=== PATIENT | male | born 2000 | race Caucasian/White ===

== ENCOUNTER 2019-10-29 13:21 | Emergency (ER) | payer SELFPAY ==
--- NOTE | ~2019-10-29 | CT_ITS ---
EXAMINATION: CT brain wo con DATE: 10/29/2019 14:14 INDICATION: Dizziness. Headache. TECHNIQUE: Computed tomography (CT) of the head was performed without intravenous contrast. The mA wa s adjusted according to patient size. Iterative reconstruction technique was employed. The dose-lengt h product was 605.33 mGy-cm. COMPARISON: None FINDINGS: There is no intracranial hemorrhage, acute infarction, or abnormal intracranial mass lesion . The ventricles are normal in size. There is mild mucosal thickening in the ethmoid sinuses. The orb its are normal. The mastoid air cells are normal. IMPRESSION: 1. Normal brain. Reviewed, dictated and finalized at location A. IMPRESSION: 1. Normal brain.
--- NOTE | ~2019-10-29 | XR_ITS ---
EXAMINATION: XR chest 1V DATE: 10/29/2019 14:17 INDICATION: Dizziness. TECHNIQUE: A single frontal view of the chest was obtained. COMPARISON: None. FINDINGS: The chest demonstrates clear lungs without pneumonia, pleural effusion, or pneumothorax. Th e heart size is normal. IMPRESSION: 1. No acute cardiopulmonary disease. Reviewed, dictated and finalized at location A.
[2019-10-29 13:26] VITALS: BP 146/87; PULSE 85; RESP 16; TEMP 36.7; O2SAT 100
[2019-10-29 13:44] VITALS: BP 141/77; PULSE 86; RESP 23; TEMP 36.7; O2SAT 100
--- NOTE | 2019-10-29 13:52 | ED.DIZZY ---
HPI - Dizziness General Chief Complaint: Dizziness Stated Complaint: dizziness Time Seen by Provider: 10/29/19 13:49 Source: patient Mode of arrival: ambulatory Limitations: no limitations History of Present Illness HPI Narrative: The pt is a 19 y/o male who presents to the ED c/o dizziness onset four days ago. Pt states that it is intermittent, and worsens when he moves. It sometimes improves when he lies down. He describes it as a room-spinning. Pt reports intermittent HAIR, cough, and intermittent nausea, but denies rhinorrhea, sneezing, and sore throat. Pt denies any new stress or new medications. Pt denies any usage of cigarettes or alcohol. MD elicited complaint: dizziness Onset (ago): day(s) (4) Timing: intermittent Description: room spinning Exacerbating factors: movement/ambulation Relieving factors: lying down Associated symptoms: nausea (Intermittent) and other (Cough) Associated neuro symptoms: other (Headache (Intermittent)) Related Data Allergies Allergy/AdvReac Type Severity Reaction Status Date / Time No Known Allergies Allergy Verified 10/29/19 13:49 Review of Systems Review of Systems: All systems reviewed & are unremarkable except as noted in HPI and below ENT: Denies sore throat and Denies other (Rhinorrhea, sneezing) Respiratory: Respiratory: Reports cough Gastrointestinal: Gastrointestinal: Reports nausea (Intermittent) Neurologic: Reports dizziness ( Room-spinning, Intermittent) and Reports headache(s) (Intermittent) PMFSH Past Medical History Medical History (Updated 10/29/19 @ 15:13 by Emiliano Khan MD) No significant past medical history Surgical History Surgical History (Updated 10/29/19 @ 14:10 by Aolnso Rodriguez) No significant past surgical history Social History Social History (Updated 10/29/19 @ 14:10 by Alonso Rodriguez) Smoking status: Never smoker Gender identity (if verbalized by the patient): Male Exam Narrative: Exam Narrative: General appearance: Well-developed, well-nourished Skin: Normal color Head: Normocephalic, nontraumatic Eyes: Clear conjunctiva ENT: Oropharynx normal, ears normal, nose normal Neck: Supple, nontender Chest and respiratory: Airway patent, no respiratory distress, no accessory muscle use Heart: Regular rate/rhythm Abdomen: Soft, nontender, no organomegaly, quiet bowel sounds Vascular: Normal peripheral pulses, normal capillary refill. Musculoskeletal: Normal range of motion, nontender back Neurologic: Alert and oriented ?3, [employer] is normal as tested, no gross motor deficit Course Course Emergency Course: Improving Vital Signs Vital signs: Vital Signs Temperature 36.7 C 10/29/19 13:26 Pulse Rate 85 10/29/19 13:26 Respiratory Rate 16 10/29/19 13:26 Blood Pressure 146/87 H 10/29/19 13:26 Pulse Oximetry 100 10/29/19 13:26 Temperature 36.7 C 10/29/19 13:44 Pulse Rate 88 10/29/19 14:00 Respiratory Rate 23 H 10/29/19 13:44 Blood Pressure 146/102 H 10/29/19 14:00 Pulse Oximetry 100 10/29/19 13:44 MDM - Dizziness MDM Narrative Medical decision making narrative: My concern is orthostatic hypotension, stress-induced, upper respiratory infection causing dizziness or intracranial pathology. Labs, CT head, UA ordered. Further plan to follow Differential Diagnosis Differential diagnosis: Likely orthostatic hypotension and other (Anxiety, intracranial pathology) Lab Data Result diagrams: 10/29/19 14:45 10/29/19 14:45 Labs: Lab Results 10/29/19 10/29/19 Range/Units 14:45 14:45 WBC 8.2 (4.5-10.0) K/mm3 RBC 5.62 (4.6-6.20) M/mm3 Hgb 16.4 (14.0-18.0) g/dL Hct 48.8 (42.0-5
[2019-10-29 14:00] VITALS: BP 132/65; BP 137/95; BP 146/102; PULSE 73; PULSE 85; PULSE 88
--- NOTE | 2019-10-29 14:03 | ECG_ITS ---
Measurements Intervals [place] Rate: 69 P: 22 [place]: 137 QRS: 55 QRSD: 83 T: 16 QT: 355 QTc: 381 Interpretive Statements SINUS RHYTHM BASELINE ARTIFACT- I, II, AVR NORMAL ECG Electronically Signed On 10-29-2019 16:07:59 CDT by Ramiro Lynn D.O.
[2019-10-29 14:50] LABS: Basophils Absolute Auto 0.1 K/mm3 (0.0-0.1); Eosinophils Absolute Auto 0.2 K/mm3 (0-0.3); Eosinophils Percent Auto 1.9 % (0-4.4); Hematocrit 48.8 % (42.0-52.0); Hemoglobin 16.4 g/dL (14.0-18.0); Immature Granulocyte Absolute 0.04 K/mm3 (0.00-0.031); Immature Granulocyte Percent A 0.5 % (0-0.5); Lymphocytes Absolute Auto 2.05 K/mm3 (0.9-3.2); Lymphocytes Percent Auto 24.9 % (18.3-44.2); Mean Corpuscular HGB Conc 33.6 g/dl (32-36); Mean Corpuscular Hemoglobin 29.2 pg (26-34); Mean Corpuscular Volume 86.8 fl (80-100); Mean Platelet Volume 11.3 fl (7.4-10.4); Monocytes Absolute Auto 0.7 K/mm3 (0.1-0.6); Monocytes Percent Auto 7.9 % (2.6-8.5); Neutrophils Absolute Auto 5.2 K/mm3 (1.3-6.7); Neutrophils Percent Auto 63.8 % (45.5-73.1); Platelet Count Result 239 k/mm3 (150-375); Red Blood Count 5.62 M/mm3 (4.6-6.20); Red Cell Distribution Width 12.8 % (11.5-14.5); White Blood Count 8.2 K/mm3 (4.5-10.0)
[2019-10-29 15:02] LABS: Alanine Aminotransferase 35 U/L (4-50); Albumin Level 4.5 g/dL (3.5-5.1); Alkaline Phosphatase 95 U/L (38-126); Aspartate Amino Transferase 31 U/L (17-59); Bilirubin,Total 0.7 mg/dL (0.2-1.3); Blood Urea Nitrogen 18 mg/dL (9-20); Calcium 9.6 mg/dL (8.4-10.2); Carbon Dioxide 28 mmol/L (22-30); Chloride 103 mmol/L (98-107); Estimated CRCL calculation 122 ml/min; Estimated Glomerular Filt Rate > 60; Glucose 93 mg/dL (75-110); Potassium 4.5 mmol/L (3.4-5.0); Sodium 141 mmol/L (137-145)
[2019-10-29 15:15] VITALS: BP 142/95; PULSE 87; RESP 18; TEMP 37.1; O2SAT 100
[2019-10-29 15:34] VITALS: BP 137/87; PULSE 71; RESP 18; TEMP 36.4; O2SAT 99
== END 2019-10-29 15:34 | disposition home or self-care (01) ==
PROVIDERS: Emergency Provider Emergency Medicine
DX: R42 Dizziness and giddiness (principal)
CPT/HCPCS: 36415; 70450; 71045; 80053; 85025; 93005; 99284

== ENCOUNTER 2019-12-14 18:43 | Emergency (ER) | payer SELFPAY ==
--- NOTE | ~2019-12-14 | XR_ITS ---
EXAMINATION: XR shoulder RT min 2V EXAM DATE: 12/14/2019 19:09 INDICATION: Initial encounter following injury, with pain of the right shoulder. Injury was 2 weeks ago with persistent pain. TECHNIQUE: The following right shoulder projections obtained: frontal projection with internal rotati on, frontal projection with external rotation, Grashey, and scapular Y view (4+ views). There is no prior study for comparison. FINDINGS: Slight contour distortions to the right sixth and seventh ribs posteriorly, possible subacu te or chronic rib fractures. No evidence of right shoulder rotator cuff calcific tendinosis. Unrem arkable right glenohumeral and acromioclavicular joints. There are no acute right shoulder fractures or dislocations identified. There is no subcutaneous gas. The soft tissue is unremarkable. There are no radiopaque foreign bodies. IMPRESSION: Possible subacute right sixth and seventh rib fractures posteriorly. Unremarkable shoulde r. Reviewed, dictated and finalized at location A. IMPRESSION: Possible subacute right sixth and seventh rib fractures posteriorly . Unremarkable shoulder.
[2019-12-14 18:48] VITALS: BP 152/101; PULSE 98; RESP 18; TEMP 37.1
--- NOTE | 2019-12-14 19:27 | ED.UPPEXIN ---
HPI - Extremity Injury (Upper) General Chief Complaint: Extremity Injury, Upper <Sammie Ramirez PA-C - Last Filed: 12/14/19 19:36> Stated Complaint: Shoulder injury <DENA Arellano Last Filed: 12/14/19 19:36> Time Seen by Provider: 12/14/19 19:07 <Sammie Ramirez PA-C - Last Filed: 12/14/19 19:36> Source: patient <DENA Arellano Last Filed: 12/14/19 19:36> Mode of arrival: ambulatory <DENA Arellano Last Filed: 12/14/19 19:36> Limitations: no limitations <DENA Arellano Last Filed: 12/14/19 19:36> History of Present Illness HPI narrative: Patient presents with chief complaint of right shoulder pain that began approximately 2 weeks ago while lifting at work. Patient states that he felt a sharp pain in his upper bicep and shoulder but he continued to work. Patient states he was lifting today and the pain returned and was greater. He denies direct trauma to the shoulder falls. He denies any prior fractures to the area. Patient states that he is unable to move the shoulder in abduction or external rotation without a tremendous amount of pain. Patient denies any other injuries or concerns. <Sammie Ramirez PA-C - Last Filed: 12/14/19 19:36> Related Data Allergies/Adverse Reactions: Allergies Allergy/AdvReac Type Severity Reaction Status Date / Time No Known Allergies Allergy Verified 10/29/19 13:49 <Sammie Ramirez PA-C - Last Filed: 12/14/19 19:36> Review of Systems Review of Systems: Narrative: CONSTITUTIONAL: Denies fever, chills, or sweats. EYES: Denies visual changes, redness, or discharge. ENT: Denies rhinorrhea, congestion, sore throat, or otalgia. CARDIOVASCULAR: Denies chest pain, palpitations, or edema. RESPIRATORY: Denies cough or dyspnea. GASTROINTESTINAL: Denies abdominal pain, nausea, vomiting, or diarrhea. GENITOURINARY: Denies dysuria or hematuria. SKIN: Denies rash or itching. MUSCULOSKELETAL: Right shoulder pain denies back pain or myalgia. NEUROLOGIC: Denies headache, numbness, dizziness, or weakness. PSYCHIATRIC: Denies anxiety or depression. <Sammie Ramirez PA-C - Last Filed: 12/14/19 19:36> PMFSH Past Medical History Medical History: Medical History (Updated 12/14/19 @ 19:34 by Sammie Ramirez PA-C) No significant past medical history <Sammie Ramirez PA-C - Last Filed: 12/14/19 19:36> Surgical History Surgical History: Surgical History (Updated 10/29/19 @ 14:10 by Alonso Rodriguez) No significant past surgical history <Sammie Ramirez PA-C - Last Filed: 12/14/19 19:36> Social History Social History: Social History (Updated 10/29/19 @ 14:10 by Alonso Rodriguez) Smoking status: Never smoker Gender identity (if verbalized by the patient): Male <Sammie Ramirez PA-C - Last Filed: 12/14/19 19:36> Exam Narrative: Exam Narrative: GENERAL: Well-appearing, well-nourished, and in no acute distress. HEAD: Normocephalic, atraumatic. EYES: PERRLA and EOMI. ENT: Nares clear, no rhinorrhea or epistaxis. Mucous membranes moist. Oropharynx without tonsillar hypertrophy exudate or other lesions. NECK: Supple. No adenopathy or masses. Range of motion intact without injury. CHEST: Clear to auscultation. No respiratory distress. No wheezes rales or rhonchi. No tachypnea or pain with breathing. HEART: Regular rate and rhythm. No murmur heard. Normal peripheral pulses. ABDOMEN: Soft, nontender, nondistended, normal active bowel sounds. EXTREMITIES: No outward edema or abrasions noted. Patient reports pain with any abduction over 45 degrees. Patient is able to internally rotate but is unable to externally rotate due to extreme pain. Patient also declines passive range of motion testing. 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 SKIN: Warm, dry, no rash. NEURO: No focal deficits. Alert and oriented x3. PSYCH: Normal mood and affect. <Sammie Ramirez PA-C -
[2019-12-14 19:31] VITALS: BP 140/81; PULSE 78; RESP 20; O2SAT 99
== END 2019-12-14 19:56 | disposition home or self-care (01) ==
PROVIDERS: Emergency Provider Emergency Medicine
DX: S43.401A Unspecified sprain of right shoulder joint, initial encounter (principal); R93.7 Abnormal findings on diagnostic imaging of other parts of musculoskeletal system; X50.9XXA Other and unspecified overexertion or strenuous movements or postures, initial encounter
CPT/HCPCS: 73030; 99283; A4565

== ENCOUNTER 2021-03-15 11:50 | Day surgery (SDC) | payer SELFPAY ==
[2021-03-15] VITALS (10 sets, daily range): BP systolic 108–159; BP diastolic 48–104; PULSE 79–110; RESP 18–34; TEMP 36.3–36.7; O2SAT 94–99; BMI 38.6
--- NOTE | ~2021-03-15 | CT_ITS ---
EXAMINATION: CT abdomen pelvis w con EXAM DATE: 03/15/2021 13:06 INDICATION: Right lower quadrant pain. TECHNIQUE: Spiral CT of the abdomen and pelvis was performed following intravenous injection of 100 m L Omnipaque 350. Axial, coronal and sagittal images of the abdomen and pelvis were reviewed. The do se-length product (DLP) for this examination was 1684.42 mGy-cm. The exposure was tailored according to patient size (auto mA exposure control), and iterative reconstruction (ASIR) was used as addition al dose reduction technique. There is no prior study for comparison. FINDINGS: There is hepatic steatosis without suspicious focal lesion identified. Spleen, adrenal glan ds, pancreas are unremarkable. Gallbladder is unremarkable. No biliary obstruction. Portal and spl enic veins are patent. Kidneys enhance symmetrically. There is no hydronephrosis. Small region of s carring in the superior pole of the left kidney. The prostate is unremarkable. The bladder is unrem arkable. There is no retroperitoneal or pelvic lymphadenopathy. The appendix is dilated with moderate amount of adjacent inflammation. No abscess or perforation. Acu te uncomplicated appendicitis. The stomach and small bowel are unremarkable. There is expected amou nt of colonic stool. No free intraperitoneal gas. The heart is normal in size. There are no zayra cardial or pleural effusions. The lung bases are unremarkable. There are no osteoblastic or osteoly tic lesions identified. IMPRESSION: Acute uncomplicated appendicitis. I discussed appendicitis with Rylan Jackson DO at 03/15/2021 13:10 CDT. Reviewed, dictated and finalized at location B.
[2021-03-15 12:15] LABS: Basophils Absolute Auto 0.1 K/mm3 (0.0-0.1); Basophils Percent Auto 0.6 % (0.2-1.2); Eosinophils Absolute Auto 0.2 K/mm3 (0-0.3); Eosinophils Percent Auto 2.1 % (0-4.4); Hematocrit 47.1 % (42.0-52.0); Immature Granulocyte Absolute 0.06 K/mm3 (0.00-0.031); Immature Granulocyte Percent A 0.5 % (0-0.5); Lymphocytes Absolute Auto 2.33 K/mm3 (0.9-3.2); Lymphocytes Percent Auto 21.3 % (18.3-44.2); Mean Corpuscular Hemoglobin 29.6 pg (26-34); Mean Corpuscular Volume 87.1 fl (80-100); Mean Platelet Volume 11.1 fl (7.4-10.4); Monocytes Percent Auto 8.7 % (2.6-8.5); Neutrophils Absolute Auto 7.3 K/mm3 (1.3-6.7); Neutrophils Percent Auto 66.8 % (45.5-73.1); Platelet Count Result 280 k/mm3 (150-375); Red Blood Count 5.41 M/mm3 (4.6-6.20); Red Cell Distribution Width 12.8 % (11.5-14.5); White Blood Count 10.9 K/mm3 (4.5-10.0)
[2021-03-15 12:26] LABS: Alanine Aminotransferase 53 U/L (4-50); Albumin Level 4.8 g/dL (3.5-5.1); Alkaline Phosphatase 82 U/L (38-126); Anion Gap 12 mmol/L (8-16); Aspartate Amino Transferase 35 U/L (17-59); Bilirubin,Total 0.9 mg/dL (0.2-1.3); Blood Urea Nitrogen 16 mg/dL (9-20); Calcium 10.4 mg/dL (8.4-10.2); Carbon Dioxide 25 mmol/L (22-30); Chloride 103 mmol/L (98-107); Estimated CRCL calculation 128 ml/min; Estimated Glomerular Filt Rate > 60; Glucose 112 mg/dL (65-110); Lipase 85 U/L (23-300); Potassium 4.3 mmol/L (3.4-5.0); Sodium 140 mmol/L (137-145)
--- NOTE | 2021-03-15 12:34 | ED.ABDPAIN ---
HPI - Abdominal Pain General Chief Complaint: Abdominal Pain Stated Complaint: RLQ Pain Time Seen by Provider: 03/15/21 12:29 Source: RN notes reviewed History of Present Illness HPI narrative: Patient presents emergency department from home for abdominal pain. Patient states symptoms began 3 days ago. Pain is located right lower quadrant does not radiate. Pain is described as sharp and stabbing. Associated with nausea and diarrhea. Patient states he took Tylenol for the pain at home with no relief he denies any fevers or chills chest pain shortness of breath or any other symptoms Related Data Home Medications Medication Instructions Recorded Confirmed diazepam 5 mg tablet 5 mg PO ONCE PRN tablet 01/18/20 Allergies Allergy/AdvReac Type Severity Reaction Status Date / Time No Known Allergies Allergy Verified 03/15/21 12:30 Review of Systems Review of Systems: Narrative: Gen.: Denies fevers or chills ENT: Denies congestion Respiratory: Denies shortness of breath or cough CV: Denies chest pain or palpitations GI: See HPI denies burning, urgency, frequency or hematuria Musculoskeletal: Denies back pain or muscle pain Neuro: Denies numbness, tingling, weakness or focal weakness Skin: Denies rash Except as documented, all other systems reviewed and negative PMFSH Past Medical History Medical History Chronic pain of left knee Dizziness No significant past medical history Right shoulder pain Rotator cuff tear Seasonal allergies Vertigo Surgical History Surgical History No significant past surgical history Family History Family History (Updated 12/24/19 @ 09:57 by Jo Morley) Unknown Hypertension Heart disease Social History Social History (Updated 03/15/21 @ 12:35 by Rylan Jackson DO) Smoking status: Never smoker Alcohol intake: never Substance use: unknown Gender identity (if verbalized by the patient): Male Exam Narrative: Exam Narrative: APPEARANCE: No acute distress, nontoxic, resting in bed HEENT: Normocephalic, atraumatic, OMM RESPIRATORY: No respiratory distress, clear to auscultation bilaterally with no rhonchi wheezing or rales CARDIOVASCULAR: RRR s murmur ABDOMINAL: Soft nondistended tender palpation right lower quadrant with mild tenderness in right upper quadrant and left lower quadrant no rebound or guarding MUSCULOSKELETAl: Moves all extremities. No clubbing, cyanosis or edema. NEURO: Awake and alert. Following commands, speech normal, no focal deficits SKIN:: Warm, dry. Normal Color PSYCHIATRIC: Normal affect/mood Course Course Emergency Course: Discussed with Dr. Hannah who came to the emergency department to evaluate the patient will take the patient for appendectomy at this time Discussed with patient plan for ORN agreement this time Vital Signs Vital signs: Vital Signs Temperature 98.1 F 03/15/21 11:52 Pulse Rate 105 H 03/15/21 11:52 Respiratory Rate 18 03/15/21 11:52 Blood Pressure 150/104 H 03/15/21 11:52 Pulse Oximetry 98 03/15/21 11:52 Temperature 98.1 F 03/15/21 11:52 Pulse Rate 110 H 03/15/21 12:28 Respiratory Rate 18 03/15/21 12:28 Blood Pressure 147/96 H 03/15/21 12:28 Pulse Oximetry 99 03/15/21 12:28 MDM - Abdominal Pain Lab Data Result diagrams: 03/15/21 12:06 03/15/21 12:06 Labs: Lab Results 03/15/21 03/15/21 03/15/21 Range/Units 12:06 12:06 12:42 WBC 10.9 H (4.5-10.0) K/mm3 RBC 5.41 (4.6-6.20) M/mm3 Hgb 16.0 (14.0-18.0) g/dL Hct 47.1 (42.0-52.0) % MCV 87.1 (80-100) fl MCH 29.6 (26-34) pg MCHC 34.0 (32-36) g/dl RDW 12.8 (11.5-14.5) % Plt Count 280 (150-375) k/mm3 MPV 11.1 H (7.4-10.4) fl Immature Gran % (Auto) 0.5 (0-0.5) % Neut % (Auto) 66.8 (45.5-73.1) % Lymph % (Auto) 21.3 (18.3-44.2)
[2021-03-15] MEDS: ONDANSETRON INJ 4 MG/2 ML VIAL IV PUSH (12:39)
[2021-03-15] MEDS: KETOROLAC 30 MG/ML VIAL (*BKC) IV PUSH (12:39)
[2021-03-15] MEDS: SODIUM CHLORIDE 0.9% IV 1,000 ML 999 ML IV CONT (12:42)
[2021-03-15 12:52] LABS: Add Urine Microscopic? NO; Appearance Urine Clear (Clear); Bilirubin Urine Negative (Negative); Blood Urine Negative (Negative); Color Urine Yellow (Yellow); Glucose Urine UA Negative (Negative); Ketones Urine Negative (Negative); Leukocyte Esterase Ur Negative LEU/UL (Negative); Nitrate Urine Negative (Negative); Protein Urine Negative (Negative); Specific Grav Ur 1.028 (1.001-1.035); Urobilinogen Urine Negative mg/dL (<2.0)
--- NOTE | 2021-03-15 15:18 | PM.IMHP ---
H&P: HPI History of Present Illness Date/Time: 03/15/21 15:18 20 y/o M presents to ED c/o 3 d h/o progressively worsening RLQ abd pain. Pt reports pain is now constant and sharp, worsening c movt. Pt reports assoc N/V, poor appetite, f/c, diarrhea. Pt reports he had a similar episode a few mos ago, although it was not as severe and lasted only 24 hours. Chief Complaint: acute appendicitis Review of Systems Constitutional: Constitutional: Reports anorexia, Denies body ache(s), Reports chills, Reports fatigue, Reports fever(s), Reports lethargy, Reports malaise, Reports poor appetite, Reports weakness, Denies weight gain and Denies weight loss Eyes: Eyes: Reports no additional eye complaints ENT: Reports system reviewed and no additional complaints, except as documented Cardiovascular: Cardiovascular: Reports no additional cardiovascular complaints Respiratory: Respiratory: Reports no additional respiratory complaints Gastrointestinal: Gastrointestinal: Reports abdominal pain, Reports bloating, Reports change in bowel habits, Reports change in stool character, Denies constipation, Reports GI cramping, Reports diarrhea, Reports loose stools, Reports nausea, Reports vomiting and Denies hematemesis Genitourinary: Genitourinary: Reports no additional male genitourinary complaints Musculoskeletal: Musculoskeletal: Reports no additional musculoskeletal complaints Integumentary/Breasts: Skin/Breast: Reports system reviewed and no additional complaints, except as docu Neurologic: Reports system reviewed and no additional complaints, except as documented Psychiatric: Psychiatric: Reports no additional psychiatric complaints Endocrine: Endocrine: Reports no additional endocrine complaints Hematologic/Lymphatic: Hematologic/Lymphatic: Reports no additional hematologic/lymphatic complaints Allergic/Immunologic: Allergic/Immunologic: Reports no additional allergic/immunologic complaints [facility] Past Medical History Medical History Chronic pain of left knee Dizziness No significant past medical history Right shoulder pain Rotator cuff tear Seasonal allergies Vertigo Surgical History Surgical History No significant past surgical history Family History Family History Unknown Hypertension Heart disease Social History Social History Smoking status: Never smoker Alcohol intake: never Substance use: unknown Gender identity (if verbalized by the patient): Male Meds Home Medications and Allergies Home Medications Medication Instructions Recorded Confirmed Type No Home Medications 03/15/21 03/15/21 History Allergies Allergy/AdvReac Type Severity Reaction Status Date / Time No Known Allergies Allergy Verified 03/15/21 12:30 Vital Signs Vital Signs - 24 hr 03/15/21 11:52 03/15/21 12:28 Temperature 36.7 C Pulse Rate 105 H 110 H Respiratory Rate 18 18 Blood Pressure 150/104 H 147/96 H Pulse Oximetry 98 99 Exam Const: General: cooperative, alert, awake, Physically active and acute distress mild Nutritional Appearance: obese Orientation/consciousness: patient oriented x3 Limitations: no limitations HENMT: Head: normal to inspection, No palpable skull fracture present, normocephalic and atraumatic Ears: hearing grossly normal bilaterally General nose exam: Normal external nose present Face and sinus: normal facial exam Mouth: Yes Normal oral and palatal mucosa present and Yes moist mucous membranes Throat: posterior oropharynx normal Eyes: General: appearance normal, both eyes and all related structures Pupils: Equal, round and reactive pupils present EOM: EOMs intact bilaterally Neck: Neck: normal visual inspection, full ROM and no lymphadenopathy Chest: Chest palpation
--- NOTE | 2021-03-15 15:24 | WPDHPUPDATE1 ---
History and Physical Update Update Date/Time: 03/15/21 15:24 History and Physical has been reviewed, including an updated exam of the patient. There are NO changes in the patient's condition. Risks, benefits, and alternatives have been discussed and questions answered. Patient agrees to proceed with procedure.
--- NOTE | 2021-03-15 15:48 | WPDANESEPPF ---
Anes - Initial Pre Proc Eval Procedure: Operation Date: 03/15/21 16:00 Proposed Procedures p Laparoscopic Appendectomy - Bina Hannah MD Date/Time: 03/15/21 15:48 Surgeon: Bina Hannah MD Pre Op Diagnosis: RLQ Pain Patient Data Age: 20 Gender: M Height: 1.88 m Weight: 136.4 kg Last Vital Signs Temp 36.4 C L 03/15/21 15:15 Pulse 79 03/15/21 15:15 Resp 20 03/15/21 15:15 BP 142/81 H 03/15/21 15:15 Pulse Ox 99 03/15/21 15:15 Allergies Allergy/AdvReac Type Severity Reaction Status Date / Time No Known Allergies Allergy Verified 03/15/21 12:30 Home Medications Medication Instructions Recorded Confirmed Type No Home Medications 03/15/21 03/15/21 History Laboratory Tests 03/15/21 03/15/21 03/15/21 12:06 12:06 12:42 WBC 10.9 K/mm3 H K/mm3 (4.5-10.0) RBC 5.41 M/mm3 M/mm3 (4.6-6.20) Hgb 16.0 g/dL g/dL (14.0-18.0) Hct 47.1 % % (42.0-52.0) MCV 87.1 fl fl (80-100) MCH 29.6 pg pg (26-34) MCHC 34.0 g/dl g/dl (32-36) RDW 12.8 % % (11.5-14.5) Plt Count 280 k/mm3 k/mm3 (150-375) MPV 11.1 fl H fl (7.4-10.4) Immature Gran % (Auto) 0.5 % % (0-0.5) Neut % (Auto) 66.8 % % (45.5-73.1) Lymph % (Auto) 21.3 % % (18.3-44.2) [place] % (Auto) 8.7 % H % (2.6-8.5) Eos % (Auto) 2.1 % % (0-4.4) Baso % (Auto) 0.6 % % (0.2-1.2) Lymph # (Auto) 2.33 K/mm3 K/mm3 (0.9-3.2) [place] # (Auto) 1.0 K/mm3 H K/mm3 (0.1-0.6) Eos # (Auto) 0.2 K/mm3 K/mm3 (0-0.3) Baso # (Auto) 0.1 K/mm3 K/mm3 (0.0-0.1) Abs Immat Gran (auto) 0.06 K/mm3 H K/mm3 (0.00-0.031) Absolute Neuts (auto) 7.3 K/mm3 H K/mm3 (1.3-6.7) Absolute Nucleated RBC 0.0 K/mm3 K/mm3 (0.0-0.012) Nucleated RBC % 0.0 % % (0.0-0.2) Sodium 140 mmol/L mmol/L (137-145) Potassium 4.3 mmol/L mmol/L (3.4-5.0) Chloride 103 mmol/L mmol/L (98-107) Carbon Dioxide 25 mmol/L mmol/L (22-30) Anion Gap 12 mmol/L mmol/L (8-16) BUN 16 mg/dL mg/dL (9-20) Creatinine 1.20 mg/dL mg/dL (0.7-1.3) Estim Creat Clear Calc 128 ml/min ml/min Estimated GFR > 60 (59 - ) Glucose 112 mg/dL H mg/dL (65-110) Calcium 10.4 mg/dL H mg/dL (8.4-10.2) Total Bilirubin 0.9 mg/dL mg/dL (0.2-1.3) AST 35 U/L U/L (17-59) ALT 53 U/L H U/L (4-50) Alkaline Phosphatase 82 U/L U/L (38-126) Total Protein 8.0 g/dL g/dL (6.3-8.2) Albumin 4.8 g/dL g/dL (3.5-5.1) Lipase 85 U/L U/L (23-300) Urine Color Yellow (Yellow) Urine Appearance Clear (Clear) Urine pH 5.0 (5.0-9.0) Ur Specific [place] 1.028 (1.001-1.035) Urine Protein Negative mg/dL mg/dL (Negative) Urine Glucose (UA) Negative mg/dL mg/dL (Negative) Urine Ketones Negative mg/dL mg/dL (Negative) Ur Blood (Man) Negative (Negative) Urine Nitrate Negative (Negative) Urine Bilirubin Negative (Negative) Urine Urobilinogen Negative mg/dL mg/dL (<2.0) Leukocyte Esterase Rfl Negative MARKIE/UL MARKIE/UL (Negative) Patient hx anesthesia problems: none Family hx anesthesia problems: none PMFSH Past Medical History Medical History Chronic pain of left knee Dizziness No significant past medical history Right shoulder pain Rotator cuff tear Seasonal allergies Vertigo Surgical History Surgical History No significant past surgical history Family History Family History Unknown
[2021-03-15] MEDS: BUPIVACAINE/EPINEPHRINE 0.5% 30 ML VIAL INFILTRATE (16:36)
--- NOTE | 2021-03-15 16:54 | P.OP_ITS ---
Procedure Note - Detailed Date of Procedure 03/15/21 Pre-op Diagnosis acute appendicitis Post-op Diagnosis other Procedure Performed laparoscopic appendectomy Surgeon Bina Hannah MD Anesthesia general Indications 20 y/o M c acute appendicitis Findings acute appendicitis no evidence of perforation Description of Procedure The patient was taken to the operating room and placed in the supine position. After adequate induction of general anesthesia, the patient was prepped and draped in the normal sterile fashion. A time-out was then done to verify the patient's identity, as well as the procedure being performed. I began by making a 5 mm incision in the infraumbilical region, through this a Veress needle was placed in the peritoneal cavity. CO2 gas was then insufflated and after adequate pneumoperitoneum was achieved the Veress needle was removed. Then placed a 5 mm Optiview trocar under direct visualization into the peritoneal cavity. I then insufflated through this trocar site and the endoscope was placed into the trocar. Under direct visualization, placed 2 further 5 mm suprapubic port as well as an additional 12 mm port in the left lower abdomen. At this point identified the cecum, I retracted the cecum both medially and superiorly allowing me to expose the appendix. The appendix was noted to be very dilated and inflamed especially towards the tip. The appendix was noted to be very adherent to the right lateral sidewall as well as the ileum. I was able to bluntly dissect the appendix from these adhesions. I then was able to locate the base of the appendix with the cecum. I created a window with the [place] dissector between the appendix itself and the mesoappendix. I then transected the mesoappendix with a white vascular staple load. The Endo-ASTRID was then reloaded with a blue staple load and I transected the base of the appendix. Once the specimen was completely detached, an endo-pouch was placed into the 12 mm port site and the specimen was removed through the endo-pouch. The appendiceal specimen will be sent to pathology for further review. I then copiously irrigated the right lower quadrant. Hemostasis was noted at both staple lines no other pathology was seen in this area. I then moved the camera to the suprapubic port to check our its port of entry. No iatrogenic injury or other pathology was noted in the upper abdomen. I then closed the 12 mm port site with a [place] code and 0 Vicryl suture under direct visualization. At this point, the abdomen was desufflated and all ports were removed. All port sites were closed with 4 Monocryl subcuticular suture. Dermabond was placed on all wounds. The patient tolerated the procedure well and was extubated in the operating room postop. He will be sent to the recovery room in stable condi tion. Estimated Blood Loss 5 Drains No Packing No Pathology yes Complications No immediate complications Condition stable Disposition PACU
[2021-03-15] MEDS: LACTATED RINGERS 1,000 ML 30 ML IV CONT ×2 (17:05)
[2021-03-15] MEDS: oxyCODONE HCL (*CRX) 5 MG TAB IR PO (18:18)
== END 2021-03-15 18:35 | disposition home or self-care (01) ==
LOC: ANHED 14:19 → ANHSURGERY 14:41
PROVIDERS: General Practice; Emergency Provider Emergency Medicine; Visit Provider Surgery
PROC: 0DTJ4ZZ Resection of Appendix, Percutaneous Endoscopic Approach (ICD-10-PCS; CPT 44970; principal; 2021-03-15 16:00)
DX: K35.30 Acute appendicitis with localized peritonitis, without perforation or gangrene (principal); K36 Other appendicitis
CPT/HCPCS: 44970; 36415; 74177; 80053; 81003; 83690; 85025; 88304; 96361; 96365; 96375; 99285; A9270; J0330; J1100; J1885; J2250; J2405; J2543; J2704; J3010; J7030; J7120; Q9967

== ENCOUNTER 2021-05-06 15:32 | Emergency (ER) | payer SELFPAY ==
[2021-05-06 15:36] VITALS: BP 152/93; PULSE 87; RESP 20; TEMP 37; O2SAT 99
--- NOTE | 2021-05-06 16:08 | ED.ALLEREA ---
HPI - Allergic Reaction General Chief complaint: Allergic Reaction Stated complaint: allergic reaction Time Seen by Provider: 05/06/21 15:40 Source: patient and RN notes reviewed Mode of arrival: ambulatory Limitations: no limitations History of Present Illness HPI narrative: This is a 20 year old male who presents for evaluation of left upper lip swelling. He states just prior to arrival he developed swelling to left side of his upper lip. He denies new contacts . He denies using any new cream or eating peanuts , shellfish. He denies shortness of breath, rash, wheezing, chest pain, tongue swelling. He denies having similar episode in the past and he denies family history of angioedema. He denies taking ACEI. Related Data Home Medications Medication Instructions Recorded Confirmed No Home Medications 03/28/21 05/06/21 Allergies Allergy/AdvReac Type Severity Reaction Status Date / Time No Known Allergies Allergy Verified 05/06/21 15:38 Review of Systems Review of Systems: All systems reviewed & are unremarkable except as noted in HPI and below PMFSH Past Medical History Medical History Chronic pain of left knee Dizziness No significant past medical history Right shoulder pain Rotator cuff tear Seasonal allergies Vertigo Surgical History Surgical History History of laparoscopic appendectomy Family History Family History Unknown Hypertension Heart disease Social History Social History Smoking status: Never smoker Alcohol intake: never Substance use: unknown Gender identity (if verbalized by the patient): Male Exam Const: General: no acute distress and alert Orientation/consciousness: patient oriented x3 HENMT: Head: normocephalic and atraumatic General nose exam: Normal external nose present Face and sinus: sinuses nontender Mouth: Yes tongue normal, Yes Normal salivary glands and ducts present, Yes oropharynx normal, Yes moist mucous membranes and Yes other (left upper lip with mild swelling) Throat: posterior oropharynx normal Eyes: Pupils: Equal, round and reactive pupils present EOM: EOMs intact bilaterally Resp: Effort & Inspection: normal respiratory effort and no retractions Auscultation: clear to auscultation bilaterally Cardio: Rate: regular rate Rhythm: regular rhythm Heart sounds: no murmurs Skin: General skin exam: normal color Rashes: no rashes Neuro: General: patient oriented x3 and moves all extremities Extrem: General: normal to inspection Psych: Affect: normal affect Course Reevaluation(s) Reevaluation #1: Patient has presented with mild left upper lip swelling. there seems to be some improvement. He has not airway issue. He has been given return precautions. He does not take any medication or jonathan inhibitors. Date: 05/06/21 Time: 17:58 Vital Signs Vital signs: Vital Signs Temperature 98.6 F 05/06/21 15:36 Pulse Rate 87 05/06/21 15:36 Respiratory Rate 20 05/06/21 15:36 Blood Pressure 152/93 H 05/06/21 15:36 Pulse Oximetry 99 05/06/21 15:36 Temperature 98.6 F 05/06/21 15:36 Pulse Rate 88 05/06/21 18:22 Respiratory Rate 16 05/06/21 18:22 Blood Pressure 136/86 05/06/21 18:22 Pulse Oximetry 99 05/06/21 18:22 Discharge Plan Discharge Clinical Impression: Angioedema Qualifiers: Encounter type: initial encounter Qualified Code(s): T78.3XXA - Angioneurotic edema, initial encounter Patient Disposition: Home, Self-Care Condition: Stable Instructions: Angioedema (ED) Additional Instructions: Today you were evaluated for swelling to your lip. If you develop worsening swelling, difficulty breathing return to ER. Take medication as prescribed. Get established care so
[2021-05-06] MEDS: diphenhydrAMINE HCl INJ 50 MG/ML VIAL IV PUSH (16:37)
[2021-05-06] MEDS: methylPREDNISolone SOD SUCC 125 MG VIAL IV PUSH (16:37)
[2021-05-06] MEDS: FAMOTIDINE 20 MG/2 ML VIAL IV PUSH (16:37)
[2021-05-06 18:22] VITALS: BP 136/86; PULSE 88; RESP 16; O2SAT 99
== END 2021-05-06 18:23 | disposition home or self-care (01) ==
PROVIDERS: Emergency Provider General Practice; PCP Family Medicine
DX: T78.3XXA Angioneurotic edema, initial encounter (principal)
CPT/HCPCS: 96374; 96375; 99284; J1200; J2930